=== PATIENT | female | born 1970 | race Caucasian/White ===

== ENCOUNTER 2017-08-31 06:45 | Outpatient (CLI) | payer BC | END 2017-08-31 06:46 | disposition critical access hospital (66) | LOC: EMS 06:45 | PROVIDERS: ATTEND Surgery | DX: M25.571 Pain in right ankle and joints of right foot (principal); W00.0XXA Fall on same level due to ice and snow, initial encounter | CPT/HCPCS: A0425; A0427 ==

== ENCOUNTER 2017-08-31 07:20 | Inpatient (IN) | payer BC ==
--- NOTE | 2017-08-31 08:49 | XRAY Report ---
EXAM: RIGHT ANKLE RADIOGRAPHY EXAM DATE: 08/31/2017 07:51 AM. CLINICAL HISTORY: Fall fracture. COMPARISON: None. TECHNIQUE: 3 views. FINDINGS: Bones: There is a minimally angulated fracture of the lateral malleolus. There is a displaced fractur e of the medial malleolus with medial displacement of the proximal fracture fragment by 7 mm. There i s a displaced fracture of the posterior malleolus. Joints: There is medial displacement of the tibial plafond in relation to the talar dome with abnorma l widening of the medial clear space by approximately 7 mm. Soft Tissues: There is soft tissue swelling about the ankle. IMPRESSION: Displaced and angulated trimalleolar fracture of the right ankle with medial displacement of the tibi al plafond in relation to the talar dome by approximately 7 mm. [facility] Referring Provider Line: [phone] SITE ID: [id number]
--- NOTE | 2017-08-31 08:49 | ED Physician Documentation ---
PD HPI LOWER EXT INJURY - Stated complaint Stated Complaint: ANKLE INJURY - Chief complaint Chief Complaint: Ext Problem - History obtained from History obtained from: Patient - History of Present Illness PD HPI LOW EXT INJURY LOCATION: Right, Ankle Type of injury: Fall, Twist Where injury occurred: Street Timing - onset: Today Timing - duration: Hours Timing - details: Abrupt onset, Still present Improved by: Rest, Immobilization Worsened by: Moving, Palpating Associated symptoms: Swelling Contributing factors: No: Anticoagulated Similar symptoms before: Has not had sx before Recently seen: Not recently seen - Additional information Additional information: 46-year-old female was on her way to work this morning [place] the part of the sidewalk that had some thick ice on it. She slipped and fractured her ankle. Review of Systems Constitutional: denies: Fever Eyes: denies: Decreased vision Ears: denies: Ear pain Nose: denies: Congestion Throat: denies: Sore throat Cardiac: denies: Chest pain / pressure Respiratory: denies: Dyspnea, Cough GI: denies: Abdominal Pain, Nausea, Vomiting : denies: Dysuria, Frequency Skin: denies: Rash Musculoskeletal: reports: Extremity pain, Joint pain, Extremity swelling, Joint swelling, Pain with weight bearing. 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 - Present Medications Home Medications: Ambulatory Orders Medication Instructions Recorded Confirmed No Known Home Medications [No 08/31/17 08/31/17 Known Home Medications] - Allergies Allergies/Adverse Reactions: Allergies Allergy/AdvReac Type Severity Reaction Status Date / Time No Known Drug Allergies Allergy Verified 08/31/17 07:26 - Social History Does the pt smoke?: No Smoking Status: Never smoker PD ED PE NORMAL - Vitals Vital signs reviewed: Yes (hypertensive) - General General: Alert and oriented X 3, No acute distress, Well developed/nourished - HEENT HEENT: Atraumatic, PERRL, EOMI - Neck Neck: Supple, no meningeal sign - Respiratory Respiratory: No respiratory distress - Derm Derm: Normal color, Warm and dry, No rash - Extremities Extremities: Other (There is deformitiy to the ankle consistent with fracture dislocation. distal n/v is intact. ) - Neuro Neuro: Alert and oriented X 3, criminalist technician 2-12 intact, No motor deficit, No sensory deficit, Normal speech Eye Opening: Spontaneous Motor: Obeys Commands Verbal: Oriented GCS Score: 15 - Psych Psych: Normal mood, Normal affect Results - Vitals Vitals: Vital Signs - 24 hr 08/31/17 08/31/17 07:27 11:30 Temperature 36.0 C L Heart Rate 90 93 Respiratory 16 18 Rate Blood Pressure 146/92 H 150/92 H O2 Saturation 100 100 Oxygen O2 Source Room air - Rads (name of study) right ankle Radiology: Prelim report reviewed (Impression: Displaced and angulated trimalleolar fracture of the right ankle with medial displacement of the tibial plafond and in relation to the talar dome by approximately 7 mm.), EMP read indepedently, See rad report PD MEDICAL DECISION MAKING - ED course Complexity details: reviewed results, re-evaluated patient, considered differential, d/w patient, d/w emergency management consultant (Dr. Shipman) ED course: 46-year-old female with a trimalleolar fracture of the ankle is admitted to observation for surgical fixture of the fracture. Departure - Departure Disposition: [facility] DC/Xfer Clinical Impression: Trimalleolar fracture of ankle, closed Qualifiers: Encounter type: initial encounter Laterality: right Qualified Code(s): S82.851A - Displaced trimalleolar fracture of right lower leg, initial encounter for closed fracture Condition: Stable Discharge Date/Time: 08/31/17 11:59
--- NOTE | 2017-08-31 08:49 | XRAY Preliminary Report ---
Exam: XR ANKLE 3 VIEW RT IMPRESSION: Displaced and angulated trimalleolar fracture of the right ankle with medial displacement of the tibi al plafond in relation to the talar dome by approximately 7 mm. [facility] SITE ID: [id number]
[2017-08-31] MEDS ORDERED: SODIUM CHLORIDE FLUSH 0.9% 10 ML SYRINGE IVP PRN ×3 (11:47→16:55)
[2017-08-31] MEDS ORDERED: ONDANSETRON 4 MG/2 ML VIAL IVP PRN ×3 (11:47→16:55)
[2017-08-31] MEDS ORDERED: LACTATED RINGERS 1,000 ML IV SCH ×2 (12:00)
[2017-08-31] MEDS: MORPHINE 2 MG/ML SYRINGE IVP PRN ×2 (13:06→14:33)
[2017-08-31] MEDS: SODIUM CHLORIDE FLUSH 0.9% 10 ML SYRINGE IVP SCH ×2 (13:13→22:59)
[2017-08-31] MEDS ORDERED: SODIUM CHLORIDE FLUSH 0.9% 10 ML SYRINGE IVP SCH ×2 (14:00→22:00)
[2017-08-31] MEDS ORDERED: ONDANSETRON 4 MG/2 ML VIAL IVP ONE ×2 (15:00→15:45)
[2017-08-31] MEDS ORDERED: ceFAZolin 1 GM VIAL IV ONE ×2 (15:00→15:45)
[2017-08-31] MEDS ORDERED: MIDAZOLAM 2 MG/2 ML VIAL IVP ONE ×2 (15:00→15:45)
[2017-08-31] MEDS ORDERED: DEXAMETHASONE 4 MG/ML VIAL IVP ONE ×2 (15:00→15:45)
[2017-08-31] MEDS ORDERED: PROPOFOL 200 MG/20 ML VIAL IVP ONE ×2 (15:00→15:45)
[2017-08-31] MEDS ORDERED: LIDOCAINE-MPF 2% 5 ML VIAL IM ONE ×2 (15:00→15:45)
[2017-08-31] MEDS ORDERED: fentaNYL 100 MCG/2 ML VIAL IVP ONE ×2 (15:00→15:45)
[2017-08-31] MEDS ORDERED: KETOROLAC 30 MG/ML VIAL IVP ONE ×2 (15:00→15:45)
[2017-08-31] MEDS ORDERED: LIDOCAINE 1% 50 ML MDV SUBQ ONE ×2 (15:21)
[2017-08-31] MEDS ORDERED: BUPIVACAINE 0.25%-EPI 1:200000 PF 30 ML VIAL SUBQ ONE ×2 (15:21)
[2017-08-31] MEDS ORDERED: LACTATED RINGERS 1,000 ML IV ONE ×2 (15:21→16:57)
[2017-08-31] MEDS ORDERED: ACETAMINOPHEN 1,000 MG/100 ML 100 ML IV PRN (16:55)
[2017-08-31] MEDS ORDERED: HYDROmorphone 1 MG/ML SYRINGE IVP PRN (16:55)
[2017-08-31] MEDS ORDERED: PROCHLORPERAZINE 10 MG/2 ML VIAL IVP PRN (16:55)
--- NOTE | 2017-08-31 16:55 | OPERATIVE REPORT ---
Operative Report - General Admit Date: 08/31/17 Procedure Date: 08/31/17 Planned Procedure: ORIF of right ankle fracture Pre-Op Diagnosis: Trimalleolar fracture of right ankle Procedure Performed: ORIF right ankle: medial malleolus, and lateral malleolus Post Op Diagnosis: same - Procedure Note Primary Surgeon: sonu Anesthesia Provider: Mariano Anesthesia Technique: General ET tube Estimated Blood Loss (mL): 35
[2017-08-31] MEDS ORDERED: ceFAZolin 2 GM/50 ML 2 GM/50 ML BAG IV SCH (17:00)
[2017-08-31] MEDS: HYDROmorphone 1 MG/ML SYRINGE ONE ×2 (17:18→17:33)
[2017-08-31] MEDS: HYDROcod/ACETAM 5/325 MG TABLET PO PRN ×2 (18:34→22:59)
[2017-08-31] MEDS: LACTATED RINGERS 1,000 ML IV SCH (18:36)
[2017-08-31] MEDS: ceFAZolin 2 GM/50 ML 2 GM/50 ML BAG IV SCH (23:50)
[2017-09-01] MEDS: LACTATED RINGERS 1,000 ML IV SCH ×2 (01:06→12:09)
[2017-09-01] MEDS: HYDROcod/ACETAM 5/325 MG TABLET PO PRN (05:12)
[2017-09-01] MEDS: SODIUM CHLORIDE FLUSH 0.9% 10 ML SYRINGE IVP SCH (06:50)
[2017-09-01] MEDS: ceFAZolin 2 GM/50 ML 2 GM/50 ML BAG IV SCH (08:07)
--- NOTE | 2017-09-01 08:15 | PROVIDER PROGRESS NOTE ---
Subjective - General Admit Date: 08/31/17 Procedure Date: 08/31/17 Post Op Days: 1 Procedure Performed: Right Ankle ORIF, Medial and lateral malleoli - Review of Systems Wound/Incisions: positive: Healing well, Dressing dry and intact General: positive: No symptoms Musculoskeletal: positive: Joint pain Skin: positive: No symptoms Psychiatric: positive: No symptoms Objective - Patient Data Reviewed Vital Signs: Yes Vital Signs: Vital Signs x48h Temp Pulse Resp BP Pulse Ox 09/01/17 04:00 36.9 C 89 16 135/70 H 98 Weight: Weight 08/30/17 08/31/17 09/01/17 23:59 23:59 23:59 Weight (kg) 125.5 kg Intake & Output: Intake and Output Totals x24h 08/30/17 08/31/17 09/01/17 23:59 23:59 23:59 Intake Total 840 1110 Balance 840 1110 - Imaging Results Radiology Imaging: positive: EMP read indepedently - Current Medications Current Medications: Current Medications Generic Name Dose Route Start Last Admin Trade Name Freq PRN Reason Stop Dose Admin Acetaminophen/Hydrocodone Bitart 1 tab 08/31/17 16:55 09/01/17 05:12 [place]elle 5/325 PO 1 tab Q4HR PRN Administration PAIN Lactated Ringer's 1,000 mls @ 100 mls/hr 08/31/17 17:00 09/01/17 01:06 Lr IV 100 mls/hr .Q10H VIVEK Administration Cefazolin Sodium/Dextrose 2 gm in 50 mls @ 100 mls/hr 09/01/17 00:00 08:07 Ancef 2 Gm/50 Ml IV 09/01/17 08:29 100 mls/hr Q8H VIVEK Administration Morphine Sulfate 2 mg 08/31/17 13:00 08/31/17 14:33 Morphine IVP 2 mg Q1H PRN Administration PAIN Polyethylene Glycol 17 gm 09/01/17 09:00 09/01/17 08:07 Miralax PO 17 gm DAILY VIVEK Administration Sodium Chloride 10 ml 08/31/17 14:00 09/01/17 06:50 Normal Saline Flush 0.9% IVP Not Given Q8HR VIVEK - Physical Exam Wound/Incisions: positive: Healing well Extremities: positive: Joint swelling Neurologic/Psychiatric: positive: Oriented x3, CN's nml (2-12), Motor nml, Sensation nml, Mood/affect nml Impression/Plan - Problem List Problem List: POD #1: Pt expresses desire to be discharged to home. She has some concern about constipation and will be sent home with meds. PT requests wheeled walker Office to be f/u in 5 days. Next wednesday.
[2017-09-01] MEDS ORDERED: POLYETHYLENE GLYCOL 3350 17 GM PACKET PO SCH ×2 (09:00)
--- NOTE | 2017-09-01 09:24 | OPERATIVE REPORT ---
DATE OF SERVICE: 08/31/2017 Physician: Kenn Corbin MD PREOPERATIVE DIAGNOSIS: Right ankle displaced trimalleolar ankle fracture, closed. POSTOPERATIVE DIAGNOSIS: Right ankle displaced trimalleolar ankle fracture, closed. PROCEDURE PERFORMED: Open reduction, internal fixation of right medial and lateral malleoli. OPERATING SURGEON: Kenn Corbin MD ANESTHESIA: General by Mariano. INDICATIONS FOR SURGERY: The patient is a 46-year-old female who suffered a ground level fall, twist ing her ankle on the morning of 08/31/2017. She was seen in the emergency room and was found to have an unst able ankle fracture requiring surgical treatment. The patient was admitted to the hospital for semi-emerg ent surgery. FINDINGS AT SURGERY: Patient's ankle was unstable with repetitive subluxation posteriorly when unwei ghted. The ankle had hemorrhage and moderate swelling. The comminution of the medial and lateral sides was minimal, and the posterior malleolar fragment was small. There was no evident articular damage in the ankle. DESCRIPTION OF OPERATIVE PROCEDURE: The patient was taken to the operating room, given a general ane sthetic. Her ankle was sterilely prepped and draped in standard fashion. A bolster was placed under the right hip. After surgical timeout, the patient's ankle was approached through a medial and lateral incision, exp osing both medial and lateral malleoli. From the medial incision, the ankle joint was inspected and irriga lila free of clot and hematoma. The medial malleolar fragment was reduced into position and fixed with 2 screw s which yielded a semi-rigid stability, which was enhanced with a tension band wire of 18 gauge. The lateral side was fixed with a Synthes locking plate, with anatomic evangelical of the fracture which also revealed the mortise to remain stable and the syndesmosis stable. C-arm images were obtained, confirming placement of veronica dware and after this, irrigation was performed and closure. Closure was a minimal amount of buried Vicryl sutu re, followed by staple line closure of skin. Sukhdev used because of the patient's moderate to severe sw elling. The dressings were covered with Xeroform and 4 x 4's, and cast padding, and a well-padded splint was applied. The patient was taken to recovery room in stable condition. ESTIMATED BLOOD LOSS: Minimal. COMPLICATIONS: None. COUNTS: Sponge and needle counts correct. TD: 09/01/2017 08:49
[2017-09-01] MEDS: ACETAMINOPHEN 325 MG TABLET PO PRN ×2 (09:46→13:29)
--- NOTE | 2017-09-01 12:22 | Discharge Plan ---
Discharge Plan Disposition: Home, Self Care Condition: Good Prescriptions: HYDROcod/ACETAM 5/325 [[place] 5/325] 1 tab PO Q4HR PRN #60 tablet PRN Reason: Pain Polyethylene Glycol 3350 [Miralax] 17 gm PO DAILY #20 packet Walker [Ultra-Light Rollator] 1 each MC DAILY #1 each Diet: Regular Shower Restrictions: Yes (cover right lower extremity and keep dry) Driving Restrictions: Yes (no driving) Assistance Devices: Walker Weight Bearing: No Weight (on right lower extremity) No Smoking: If you smoke, Please STOP! Call for help. Follow-up with: Kenn Corbin MD [Provider Admit Priv/Credential] -
[2017-09-01 13:48] VITALS: BP 145/70
== END 2017-09-01 14:01 | disposition home or self-care (01) | DRG 494 ==
LOC: ED 07:20 → MS2 11:47 → ED 11:59
PROVIDERS: ADMIT Orthopaedic Surgery; ATTEND Orthopaedic Surgery
PROC: 0QHJ04Z Insertion of Internal Fixation Device into Right Fibula, Open Approach (ICD-10-PCS; 2017-08-31)
PROC: 0QSG04Z Reposition Right Tibia with Internal Fixation Device, Open Approach (ICD-10-PCS; principal; 2017-08-31 15:15)
DX: S82.851A Displaced trimalleolar fracture of right lower leg, initial encounter for closed fracture (principal); W00.0XXA Fall on same level due to ice and snow, initial encounter; Y93.01 Activity, walking, marching and hiking; Y92.480 Sidewalk as the place of occurrence of the external cause
CPT/HCPCS: 99284

== ENCOUNTER 2018-09-12 07:15 | Outpatient (CLI) | payer OTHER ==
[2018-09-12 10:40] LABS: CHOL/HDL RATIO 5.3 (<4.4); CHOLESTEROL 208 mg/dL; GLUCOSE,FASTING 109 mg/dL (70-100); HDL CHOLESTEROL 39 mg/dL; LDL CHOLESTEROL,CALCULATED 140 mg/dL; LDL/HDL RATIO 3.6 (<4.4); VLDL CHOLESTEROL 29 mg/dL
[2018-09-12 10:55] LABS: HB2 TOTAL 15.7 g/dL; HEMOGLOBIN A1C 0.59 g/dL; HEMOGLOBIN A1C % 5.6 % (4.6-6.2)
== END 2018-09-12 07:16 | disposition home or self-care (01) ==
LOC: LAB.F 07:15
PROVIDERS: ATTEND Internal Medicine
DX: S82.891D Other fracture of right lower leg, subsequent encounter for closed fracture with routine healing (principal); R03.0 Elevated blood-pressure reading, without diagnosis of hypertension; Z13.220 Encounter for screening for lipoid disorders; Z13.1 Encounter for screening for diabetes mellitus
CPT/HCPCS: 36415; 80061; 82947; 83036; 83721